=== PATIENT | male | born 1975 | race African-American/Black ===

== ENCOUNTER 2017-08-05 08:49 | Emergency (ER) | payer OTHER ==
[~2017-08-05] VITALS: Ht 167.6 cm; Wt 107.5 kg
[2017-08-05 08:58] VITALS: BP 132/84
== END 2017-08-05 09:23 | disposition home or self-care (01) ==
LOC: EME 08:49
DX: S61.210D Laceration without foreign body of right index finger without damage to nail, subsequent encounter (principal); W26.8XXD Contact with other sharp object(s), not elsewhere classified, subsequent encounter; Z48.02 Encounter for removal of sutures; F17.200 Nicotine dependence, unspecified, uncomplicated
CPT/HCPCS: 99281; 99283